=== PATIENT | female | born 1990 | race Caucasian/White ===

== ENCOUNTER 2018-05-22 18:54 | Emergency (ER) | payer BC ==
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
== END 2018-05-22 21:03 | disposition home or self-care (01) ==
LOC: JD.ED 18:54
DX: T25.122A Burn of first degree of left foot, initial encounter (principal); Z88.2 Allergy status to sulfonamides; X10.0XXA Contact with hot drinks, initial encounter
CPT/HCPCS: 99283